=== PATIENT | female | born 1995 | race Two or more races ===

== ENCOUNTER 2016-10-17 17:02 | Observation (INO) | payer MEDICAID ==
[~2016-10-17] VITALS: Ht 160 cm; Wt 54.4 kg
[2016-10-17 17:46] LABS: BASOPHILS % (AUTO) 0.7 % (0.0-2.0); EOSINOPHILS % (AUTO) 0.7 % (0.0-3.0); LYMPHOCYTES % (AUTO) 21.4 % (20.0-45.0); MEAN CORPUSCULAR HEMOGLOBIN 33.2 PG (27.0-31.0); MEAN CORPUSCULAR HGB CONC 36.6 G/DL (32.0-36.0); MEAN CORPUSCULAR VOLUME 91 FL (80-99); MEAN PLATELET VOLUME 5.6 FL (6.5-10.1); MONOCYTES % (AUTO) 8.1 % (1.0-10.0); NEUTROPHILS % (AUTO) 69.1 % (45.0-75.0); PLATELET COUNT 291 K/UL (150-450); RED BLOOD COUNT 3.64 M/UL (4.20-5.40); RED CELL DISTRIBUTION WIDTH 12.9 % (11.6-14.8); WHITE BLOOD COUNT 9.4 K/UL (4.8-10.8)
[2016-10-17 17:53] LABS: APPEARANCE,URINE SLIGHTLY CLOUDY; KETONES,URINE NEGATIVE (NEGATIVE); LEUKOCYTE ESTERASE ,URINE 1+ (NEGATIVE); NITRITE,URINE POSITIVE (NEGATIVE); PH,URINE 6.5 (4.5-8.0); PROTEIN,URINE 1+ (NEGATIVE); UROBILINOGEN,URINE 4 MG/DL (0.0-1.0)
[2016-10-17 18:02] VITALS: BP 92/61
[2016-10-17 18:05] LABS: ALANINE AMINOTRANSFERASE 16 U/L (3-33); ALBUMIN/GLOBULIN RATIO 1.3 (1.0-2.7); ANION GAP 14 (5-15); ASPARTATE AMINO TRANSFERASE 25 U/L (5-40); CALCIUM 9.3 mg/dL (8.6-10.2); CARBON DIOXIDE 25 mEQ/L (20-30); CHLORIDE 97 mEQ/L (98-107); CREATININE 0.7 mg/dL (0.5-0.9); GLOMERULAR FILTRATION RATE > 60 mL/min (>60); HEMOLYSIS 2; LIPASE 19 U/L (< 60); POTASSIUM 3.7 mEQ/L (3.4-4.9); SODIUM 136 mEQ/L (135-145); TOTAL PROTEIN 7.6 g/dL (6.6-8.7)
[2016-10-17 18:34] LABS: RBC,URINE 0-2 /HPF (0 - 2); SQUAMOUS EPITHELIAL CELL,UR FEW /LPF (NONE/OCC)
[2016-10-17 18:35] LABS: BACTERIA,URINE MODERATE /HPF
--- NOTE | 2016-10-17 20:39 | Emergency Room Report ---
History of Present Illness General Chief Complaint: Abdominal Pain Source: Patient (EUGENIO SANTOS) Present Illness HPI The patient is a 21-year-old female presenting for abdominal pain. The patient states that she tested positive for using a home test in August of 2016. She took the morning after pill in late August and experienced vaginal bleeding for approximately 3 weeks She states that bleeding has stopped but is now experiencing pain. Pain described as a 7/10 dull ache to the lower abdomen and does not radiate. Pain worse with touch. She denies other symptoms including nausea, vomiting, fever, chills, vaginal discharge, dysuria, hematuria, flank pain (EUGENIO SANTOS) Allergies: Coded Allergies: No Known Allergies (Unverified , 10/17/16) Patient History Past Medical History: see triage record Pertinent Family History: none Last Menstrual Period: 09/26/16 Now: No Immunizations: UTD Reviewed Nursing Documentation: PMH: Agreed, PSxH: Agreed (EUGENIO SANTOS) Nursing Documentation-PMH Past Medical History: No Stated History (EUGENIO SANTOS) Review of Systems All Other Systems: negative except mentioned in HPI (EUGENIO SANTOS) Physical Exam Vital Signs Date Time Temp Pulse Resp B/P Pulse Ox O2 Delivery O2 Flow Rate FiO2 10/17/16 17:09 99.1 133 26 92/61 98 Room Air Sp02 EP Interpretation: reviewed, normal General Appearance: no apparent distress, alert, GCS 15, non-toxic Head: normocephalic, atraumatic Eyes: bilateral eye PERRL, bilateral eye normal inspection ENT: hearing grossly normal, normal pharynx, no angioedema, normal voice Respiratory: chest non-tender, lungs clear, normal breath sounds, speaking full sentences Cardiovascular #1: no edema, no gallop, no murmur, no rub, tachycardia Gastrointestinal: normal inspection, soft, no mass, no guarding, tenderness - TTP of RLQ, suprapubic, and LLQ Genitourinary: normal inspection, no CVA tenderness Musculoskeletal: back normal, gait/station normal, normal range of motion, non- tender Neurologic: alert, oriented x3, responsive, motor strength/tone normal, sensory intact, normal gait, speech normal Psychiatric: judgement/insight normal, memory normal, mood/affect normal, no suicidal/homicidal ideation Skin: normal color, no rash, warm/dry, well hydrated Lymphatic: no adenopathy (EUGENIO SANTOS) Medical Decision Making PA Attestation Dr. Reynoso is my supervising physician. Patient management was discussed with my supervising physician (EUGENIO SANTOS) Diagnostic Impression: Primary Impression: Ruptured ectopic ER Course The patient is a 21-year-old female presenting for abdominal pain. Differential diagnoses considered include but not limited to gastritis, appendicitis, , UTI, ectopic , ovarian cyst, PID, among others PE: Tachycardia. NAD Lungs are clear to auscultation bilaterally Tachycardia. No MRG Abdomen is soft. Normal bowel sounds. Nondistended. There is tenderness to palpation of the right lower quadrant, suprapubic region, and left lower quadrant No CVA tenderness Ultrasound is limited as patient unable to tolerate transvaginal. Likely ruptured right-sided ectopic is found CBC unremarkable. CMP unremarkable Beta hCG elevated to 4200 The patient is given IV fluids, Zofran, pain medication, and Rocephin The patient's case was discussed between Dr. Reynoso and Dr. Zuniga. The patient will need to go to the OR and is placed on n.p.o. The patient agrees with this plan. She is in stable condition Laboratory Tests Test 10/17/16 17:40 White Blood Count 9.4 K/UL (4.8-10.8) Red Blood Count 3.64 M/UL (4.20-5.40) L Hemoglobin 12.1 G/DL (12.0-16.0) Hematocrit 33.0 % (37.0-47.0) L Mean Corpuscular Volume 91 FL (80-99) Mean Corpuscular Hemoglobin 33.2 PG (27.0-31.0) H Mean Corpuscular Hemoglobin Concent 36.6 G/DL (32.0-36.0) H Red Cell Distribution Width 12.9 % (11.6-14.8) Platelet Count 291 K/UL (150-450) Mean Platelet Volume 5.6 FL (6.5-10.1) L Neutrophils (%) (Auto) 69.1 % (45.0-75.0) Lymphocytes (%) (Auto) 21.4 % (20.0-45.0) Monocytes (%) (Auto) 8.1 % (1.0-10.0) Eosinophils (%) (Auto) 0.7 % (0.0-3.0) Basophils (%) (Auto) 0.7 % (0.0-2.0) Urine Color Yellow Urine Appearance Slightly cloudy Urine pH 6.5 (4.5-8.0) Urine Specific [place] 1.015 (1.005-1.035) Urine Protein 1+ (NEGATIVE) H Urine Glucose (UA) Negative (NEGATIVE) Urine Ketones Negative (NEGATIVE) Urine Occult Blood 3+ (NEGATIVE) H Urine Nitrite Positive (NEGATIVE) H Urine Bilirubin Negative (NEGATIVE) Urine Urobilinogen 4 MG/DL (0.0-1.0) H Urine Leukocyte Esterase 1+ (NEGATIVE) H Urine RBC 0-2 /HPF (0 - 2) Urine WBC 2-4 /HPF (0 - 2) Urine Squamous Epithelial Cells Few /LPF (NONE/OCC) Urine Bacteria Moderate /HPF (NONE) H Urine HCG, Qualitative Positive Sodium Level 136 mEQ/L (135-145) Potassium Level 3.7 mEQ/L (3.4-4.9) Chloride Level 97 mEQ/L (98-107) L Carbon Dioxide Level 25 mEQ/L (20-30) Anion Gap 14 (5-15) Blood Urea Nitrogen 11 mg/dL (7-23) Creatinine 0.7 mg/dL (0.5-0.9) Estimate Glomerular Filtration Rate > 60 mL/min (>60) Glucose Level 100 mg/dL (74-106) Calcium Level 9.3 mg/dL (8.6-10.2) Total Bilirubin 0.4 mg/dL (0.0-1.2) Aspartate Amino Transferase (AST) 25 U/L (5-40) Alanine Aminotransferase (ALT) 16 U/L (3-33) Alkaline Phosphatase 110 U/L (35-104) H Total Protein 7.6 g/dL (6.6-8.7) Albumin 4.4 g/dL (3.5-5.2) Globulin 3.2 g/dL Albumin/Globulin Ratio 1.3 (1.0-2.7) Lipase 19 U/L (< 60) Human Chorionic Gonadotropin, Quant 4291 mIU/mL Lab Results Impression CBC unremarkable. No leukocytosis. No anemia CMP unremarkable Beta-hCG approximately 4,200 Urinalysis consistent with UTI (EUGENIO SANTOS) ER Course Patient initially seen by by [facility]; please see his note for full history and physical Patient documented history of taking morning after pill in August after being . Patient has had pain and vomiting. Patient Urine documents . Beta hCG greater than 4000 Ultrasound is limited secondary to pain however did show complex free fluid consistent with blood. Right adnexal enlargement likely ectopic I discussed case with SERVICE CREW SUPERVISOR Dr Zuniga; he agreed that patient required admission and needs to go to the OR tonight coags and type and screen drawn Antibiotics given Patient will go to the OR tonight and will be admitted under Dr. Zuniga (JANETT REYNOSO M.D.) Chest X-Ray Diagnostic Results EP Interpretation: Yes Findings: no consolidation, no effusion, no pneumothorax, no acute cardiopulmonary disease Number of Views: 1 PA Scribe Text I am acting as scribe for my supervising physician. My supervising physician's interpretation of the chest xrays are there is no consolidation, no effusion, no acute cardiopulmonary disease, no pneumothorax (EUGENIO SANTOS) CT/MRI/US Diagnostic Results CT/MRI/US Diagnostic Results : Imaging Test Ordered: pelvic US Impression R sided ruptured ectopic (EUGENIO SANTOS) Last Vital Signs Date Time Temp Pulse Resp B/P Pulse Ox O2 Delivery O2 Flow Rate FiO2 10/17/16 18:02 99.1 26 92/61 98 Room Air 10/17/16 17:09 133 Status: improved (EUGENIO SANTOS) Status: improved (JANETT REYNOSO M.D.) Disposition: ADMITTED INPATIENT Condition: Serious Referrals: NOT CHOSEN IPA/,REFERRING (PCP) EUGENIO SANTOS Oct 17, 2016 20:39 JANETT REYNOSO M.D. Oct 17, 2016 23:23
[2016-10-17] MEDS ORDERED: Morphine Sulfate 4mg/ml Inj IVP ONE (20:45)
[2016-10-17] MEDS ORDERED: cefTRIAXone 1 GM in NS 55 ML IVPB ONE (22:00)
--- NOTE | 2016-10-17 23:33 | Pre-Procedure Note/Attestation ---
Pre-Procedure Note/Attestation Complete Prior to Procedure Planned Procedure: right Procedure Narrative: - Diagnostic laparoscopy - Possible salpingotomy - Possible salpingectomy Indications for Procedure Pre-Operative Diagnosis: Ectopic , likely on Right side Attestation I attest that I discussed the nature of the procedure; its benefits; risks and complications; and alternatives (and the risks and benefits of such alternatives ), prior to the procedure, with the patient (or the patient's legal office machines sales representative). I attest that, if there was a reasonable possibility of needing a blood transfusion, the patient (or the patient's legal office machines sales representative) was given the [place] Department [employer] Services standardized written summary, pursuant to the Yusuf Corn Blood Safety Act ([place] Health and Safety Code # 1645, as amended). I attest that I re-evaluated the patient just prior to the surgery and that there has been no change in the patient's H&P, except as documented below:NONE GUIDO ROSS Oct 17, 2016 23:33
--- NOTE | 2016-10-17 23:36 | Brief Operative Note ---
Immediate Post Operative Note Operative Note Pre-op Diagnosis: Ectopic , likely on Right side Procedure: DIagnostic Laparoscopy, Right Salpingotomy, Evacuation of extensive hemoperitoneum Post-op Diagnosis: Right Ectopic Post-op Diagnosis: same as pre-op Surgeon: Guido Ross MD Anesthesiologist: Tonny Majano MD Anesthesia: general Specimen: yes Complications: none Condition: stable Fluids: LR @200 cc/hr Estimated Blood Loss: volume - 900 ml of blood in the abdomen Implant(s) used?: No GUIDO ROSS Oct 17, 2016 23:36
[2016-10-17] MEDS ORDERED: Ropivacaine 5mg/ml Vial 20ml INJ ONE (23:44)
[2016-10-18] VITALS (14 sets, daily range): BP systolic 80–112; BP diastolic 40–69
[2016-10-18] MEDS ORDERED: fentaNYL 100 mcg/2 mL IV ONE (00:05)
[2016-10-18] MEDS ORDERED: Dexamethasone 4mg/ml vial ONE (00:05)
[2016-10-18] MEDS ORDERED: NS Irrig 1000ml ONE (00:05)
[2016-10-18] MEDS ORDERED: Midazolam 2mg/2ml Inj ONE (00:05)
[2016-10-18] MEDS ORDERED: Glycopyrrolate 0.2mg/ml 1ml Vial ONE (00:05)
[2016-10-18] MEDS ORDERED: Propofol 10mg/ml 20ml IV ONE (00:05)
[2016-10-18] MEDS ORDERED: Lidocaine 1% MPF 10mg/ml 5ml ONE (00:05)
[2016-10-18] MEDS ORDERED: Ketorolac 60mg Inj ONE (00:05)
[2016-10-18] MEDS ORDERED: LR 1000ml ONE (00:05)
[2016-10-18] MEDS ORDERED: Neostigmine 1mg/ml 10ml Inj ONE (00:05)
[2016-10-18] MEDS ORDERED: Nimbex 2mg/ml Inj 10ML IVP ONE (00:05)
[2016-10-18] MEDS ORDERED: Sterile Water Irrig 1000ml IRRIG ONE (00:05)
[2016-10-18 00:10] LABS: PROTHROMBIN TIME 10.4 SEC (9.30-11.50)
[2016-10-18] MEDS ORDERED: LR 1000ml 1,000 ML IVLG SCH (00:24)
--- NOTE | 2016-10-18 00:29 | Anethesia Preoperative Eval ---
Anesthesia Pre-op PMH/ROS General Date of Evaluation: Oct 18, 2016 Time of Evaluation: 12:01 ASA Score: ASA 1 - Emergency Mallampati Score Class I : Soft palate, uvula, fauces, pillars visible Class II: Soft palate, uvula, fauces visible Class III: Soft palate, base of uvula visible Class IV: Only hard plate visible Mallampati Classification: Class I Surgeon: Nadia Diagnosis: Abd Pain Surgical Procedure: Laparoscopic Evacuation Ectopic Anesthesia History: none Family History: no anesthesia problems Allergies: Coded Allergies: No Known Allergies (Unverified , 10/17/16) Medications: see eMAR Past Medical History Gastrointestinal/Genitourinary: Reports: other - Abnormal Bleeding per Vagina Hematology/Immune: Reports: anemia Anesthesia Pre-op Phys. Exam Physician Exam Last Vital Signs Date Time Temp Pulse Resp B/P Pulse Ox O2 Delivery O2 Flow Rate FiO2 10/18/16 00:01 99.1 19 105/69 98 Room Air 10/17/16 17:09 133 Constitutional: NAD Neurologic: CN 2-12 intact Cardiovascular: RRR Respiratory: CTA Gastrointestinal: S/NT/ND Airway Exam Mallampati Score: Class I MO: full ROM: full Teeth: intact Anesthesia Pre-op A/P Labs Hematology Test 10/17/16 17:40 White Blood Count 9.4 K/UL (4.8-10.8) Red Blood Count 3.64 M/UL (4.20-5.40) L Hemoglobin 12.1 G/DL (12.0-16.0) Hematocrit 33.0 % (37.0-47.0) L Mean Corpuscular Volume 91 FL (80-99) Mean Corpuscular Hemoglobin 33.2 PG (27.0-31.0) H Mean Corpuscular Hemoglobin Concent 36.6 G/DL (32.0-36.0) H Red Cell Distribution Width 12.9 % (11.6-14.8) Platelet Count 291 K/UL (150-450) Mean Platelet Volume 5.6 FL (6.5-10.1) L Neutrophils (%) (Auto) 69.1 % (45.0-75.0) Lymphocytes (%) (Auto) 21.4 % (20.0-45.0) Monocytes (%) (Auto) 8.1 % (1.0-10.0) Eosinophils (%) (Auto) 0.7 % (0.0-3.0) Basophils (%) (Auto) 0.7 % (0.0-2.0) Coagulation Test 10/17/16 22:17 Prothrombin Time 10.4 SEC (9.30-11.50) Prothromb Time International Ratio 1.0 (0.9-1.1) Activated Partial Thromboplast Time 26 SEC (23-33) Chemistry Test 10/17/16 17:40 Sodium Level 136 mEQ/L (135-145) Potassium Level 3.7 mEQ/L (3.4-4.9) Chloride Level 97 mEQ/L (98-107) L Carbon Dioxide Level 25 mEQ/L (20-30) Anion Gap 14 (5-15) Blood Urea Nitrogen 11 mg/dL (7-23) Creatinine 0.7 mg/dL (0.5-0.9) Estimat Glomerular Filtration Rate > 60 mL/min (>60) Glucose Level 100 mg/dL (74-106) Calcium Level 9.3 mg/dL (8.6-10.2) Total Bilirubin 0.4 mg/dL (0.0-1.2) Aspartate Amino Transf (AST/SGOT) 25 U/L (5-40) Alanine Aminotransferase (ALT/SGPT) 16 U/L (3-33) Alkaline Phosphatase 110 U/L (35-104) H Total Protein 7.6 g/dL (6.6-8.7) Albumin 4.4 g/dL (3.5-5.2) Globulin 3.2 g/dL Albumin/Globulin Ratio 1.3 (1.0-2.7) Lipase 19 U/L (< 60) Human Chorionic Gonadotropin, Quant 4291 mIU/mL Urine Test Test 10/17/16 17:40 Urine HCG, Qualitative Positive Risk Assessment & Plan Assessment: ASA 1E Pre-Antibiotics Dru Gram Ancef IV Given Within 1 Hr of Incision: Yes Time Given: 00:11 Aldo Majano MD Oct 18, 2016 00:29
[2016-10-18] MEDS ORDERED: Oxycodone/Acetaminophen 5-325 ORAL PRN (00:30)
[2016-10-18] MEDS ORDERED: Norco 7.5mg/325mg tab ORAL PRN (00:30)
[2016-10-18] MEDS ORDERED: DiphenhydrAMINE 50mg/ml Inj IVP PRN (00:30)
[2016-10-18] MEDS ORDERED: Ketorolac 60mg Inj IV PRN (00:30)
[2016-10-18] MEDS ORDERED: Atropine Inj 1mg/10ml Syr IV PRN (00:30)
[2016-10-18] MEDS ORDERED: Ketorolac 30mg Inj IV PRN (00:30)
[2016-10-18] MEDS ORDERED: Midazolam 2mg/2ml Inj IVP PRN (00:30)
[2016-10-18] MEDS ORDERED: Metoclopramide 10mg/2ml Inj IVP PRN (00:30)
[2016-10-18] MEDS ORDERED: Meperidine 25mg/0.5ml Inj IV PRN (00:30)
[2016-10-18] MEDS ORDERED: fentaNYL 100 mcg/2 mL IV PRN (00:30)
[2016-10-18] MEDS ORDERED: Hydromorphone 0.5mg/0.5ml inj IVP PRN (00:30)
[2016-10-18] MEDS ORDERED: Norco 5mg/325mg tab ORAL PRN ×2 (00:30→02:30)
[2016-10-18] MEDS ORDERED: LORazepam Inj 2mg/ml 1ml IV PRN (00:30)
--- NOTE | 2016-10-18 00:32 | 48 Hour Post Anesthesia Eval ---
Post Anesthesia Evaluation Procedure: Laparoscopic Evacuation Ectopic Pregnacy Date of Evaluation: Oct 18, 2016 Time of Evaluation: 04:31 Blood Pressure Systolic: 101 0: 72 Pulse Rate: 99 Respiratory Rate: 18 Temperature (Fahrenheit): 98.4 O2 Sat by Pulse Oximetry: 100 Airway: patent Nausea: No Vomiting: No Pain Intensity: 2 Hydration Status: adequate Cardiopulmonary Status: Stable Mental Status/LOC: patient returned to baseline Follow-up Care/Observations: 0 Post-Anesthesia Complications: 0 Follow-up care needed: N/A Aldo Majano MD Oct 18, 2016 00:32
--- NOTE | 2016-10-18 00:32 | Immediate Post-Op Evaluation ---
Immediate Post-Op Evalulation Immediate Post-Op Evalulation Procedure: Laparoscopic Evacuation Ectopic Pregnacy Date of Evaluation: Oct 18, 2016 Time of Evaluation: 02:28 IV Fluids: 1600 LR Blood Products: 0 Estimated Blood Loss: 50 Urinary Output: 100 Blood Pressure Systolic: 87 Blood Pressure Diastolic: 50 Pulse Rate: 122 Respiratory Rate: 16 O2 Sat by Pulse Oximetry: 100 Temperature (Fahrenheit): 98 Pain Score (1-10): 2 Nausea: No Vomiting: No Complications 0 Patient Status: awake, reacts, patent, extubated, none Hydration Status: adequate Dru Gram Ancef IV Given Within 1 Hr of Incision: Yes Time Given: 00:11 Aldo Majano MD Oct 18, 2016 00:32
--- NOTE | 2016-10-18 02:28 | Short Stay Surgery H&P ---
History of Present Illness History of Present Illness HPI Myriam Rivera is a 21 year old female who was admitted on for Upper Abdominal Pain Patient History Allergies: Coded Allergies: No Known Allergies (Unverified , 10/17/16) PAST MEDICAL HISTORY: Past Surgeries: Social History: Review of Systems Genitourinary: Reports: BPH, UTI, dialysis, endstage renal disease, no symptoms , other - Low Abominal Pain for 2 days, renal insufficiency, see HPI, urinary retention Physical Exam Vital Signs Last Vital Signs Date Time Temp Pulse Resp B/P Pulse Ox O2 Delivery O2 Flow Rate FiO2 10/18/16 02:19 99 18 100 10/18/16 00:01 99.1 105/69 Room Air Labs Laboratory Tests Test 10/17/16 17:40 10/17/16 22:17 White Blood Count 9.4 K/UL (4.8-10.8) Red Blood Count 3.64 M/UL (4.20-5.40) L Hemoglobin 12.1 G/DL (12.0-16.0) Hematocrit 33.0 % (37.0-47.0) L Mean Corpuscular Volume 91 FL (80-99) Mean Corpuscular Hemoglobin 33.2 PG (27.0-31.0) H Mean Corpuscular Hemoglobin Concent 36.6 G/DL (32.0-36.0) H Red Cell Distribution Width 12.9 % (11.6-14.8) Platelet Count 291 K/UL (150-450) Mean Platelet Volume 5.6 FL (6.5-10.1) L Neutrophils (%) (Auto) 69.1 % (45.0-75.0) Lymphocytes (%) (Auto) 21.4 % (20.0-45.0) Monocytes (%) (Auto) 8.1 % (1.0-10.0) Eosinophils (%) (Auto) 0.7 % (0.0-3.0) Basophils (%) (Auto) 0.7 % (0.0-2.0) Urine Color Yellow Urine Appearance Slightly cloudy Urine pH 6.5 (4.5-8.0) Urine Specific [place] 1.015 (1.005-1.035) Urine Protein 1+ (NEGATIVE) H Urine Glucose (UA) Negative (NEGATIVE) Urine Ketones Negative (NEGATIVE) Urine Occult Blood 3+ (NEGATIVE) H Urine Nitrite Positive (NEGATIVE) H Urine Bilirubin Negative (NEGATIVE) Urine Urobilinogen 4 MG/DL (0.0-1.0) H Urine Leukocyte Esterase 1+ (NEGATIVE) H Urine RBC 0-2 /HPF (0 - 2) Urine WBC 2-4 /HPF (0 - 2) Urine Squamous Epithelial Cells Few /LPF (NONE/OCC) Urine Bacteria Moderate /HPF (NONE) H Urine HCG, Qualitative Positive Sodium Level 136 mEQ/L (135-145) Potassium Level 3.7 mEQ/L (3.4-4.9) Chloride Level 97 mEQ/L (98-107) L Carbon Dioxide Level 25 mEQ/L (20-30) Anion Gap 14 (5-15) Blood Urea Nitrogen 11 mg/dL (7-23) Creatinine 0.7 mg/dL (0.5-0.9) Estimat Glomerular Filtration Rate > 60 mL/min (>60) Glucose Level 100 mg/dL (74-106) Calcium Level 9.3 mg/dL (8.6-10.2) Total Bilirubin 0.4 mg/dL (0.0-1.2) Aspartate Amino Transf (AST/SGOT) 25 U/L (5-40) Alanine Aminotransferase (ALT/SGPT) 16 U/L (3-33) Alkaline Phosphatase 110 U/L (35-104) H Total Protein 7.6 g/dL (6.6-8.7) Albumin 4.4 g/dL (3.5-5.2) Globulin 3.2 g/dL Albumin/Globulin Ratio 1.3 (1.0-2.7) Lipase 19 U/L (< 60) Human Chorionic Gonadotropin, Quant 4291 mIU/mL Prothrombin Time 10.4 SEC (9.30-11.50) Prothromb Time International Ratio 1.0 (0.9-1.1) Activated Partial Thromboplast Time 26 SEC (23-33) XRay U/S = Extensive Fluid in the Pelvis Skin: normal HENT: normal Heart: normal Lungs: normal Abdomen: abnormal - Severe tenderness with Rebound, Right > Left Extremities: normal Genitourinary: normal Plan Plan of Care Video Laparoscopy, emergency Treatment of Ectopic Final Diagnosis: (1) Ectopic , tubal (2) Hemoperitoneum due to rupture of right tubal ectopic Attestation Are the patient's medical conditions optimized for surgery? Attestation Response: yes GUIDO ROSS Oct 18, 2016 02:27
[2016-10-18] MEDS ORDERED: HYDROmorphone 1mg/ml Carpuject SUBQ PRN (02:30)
[2016-10-18] MEDS ORDERED: Tylenol #3 tab (300mg/30mg) ORAL PRN (02:30)
--- NOTE | 2016-10-18 03:00 | Operative Note - Dictated ---
PRE-OPERATIVE DIAGNOSIS: Ruptured ectopic . POSTOPERATIVE DIAGNOSES: Right ruptured ectopic , pelvic adhesions, and extensive hemoperitoneum. PROCEDURE PERFORMED: Video laparoscopy with right tubal salpingotomy, evacuation of ectopic , and evacuation of extensive hemoperitoneum. APPROXIMATE BLOOD LOSS: 900 mL hemoperitoneum. SURGEON: Hector Zuniga M.D. METER SUPERVISOR: None. ANESTHESIA: General endotracheal. ANESTHESIOLOGIST: Aldo Majano M.D. PROCEDURE IN DETAIL: After all the appropriate consents were signed, the patient was brought to the operating room, placed on the table in supine position. General endotracheal anesthesia was induced without complication. The patient was then placed in a dorsal lithotomy position. Perineum, vagina, and abdomen were prepped and draped in the usual fashion for the procedure. The patient was then examined under anesthesia. The cervix was identified, dilated, and uterine manipulator was introduced. Procedure then continued to abdominal portion where umbilical incision was made. Veress needle was placed and the abdomen was insufflated with 15 mmHg. The procedure then continued with placement of a 10 mm trocar in the umbilicus followed by two additional trocars in the lower left and midline. At this time, extensive hemoperitoneum was identified. The uterus was elevated and a right tube contained a very large ectopic . The apex of the was ruptured with blood spilling in the peritoneal cavity. At this time, this ruptured area was further incised using unipolar cautery opening up the dilated portion of the tube. Once the salpingotomy was completed, the traction counter traction was utilized to remove the contents of the . The tubal contents were removed from the field and submitted to pathology for evaluation. Once that was completed, the hemostasis at the tubal salpingotomy was achieved. At this time, extensive irrigation and evacuation of hemoperitoneum was undertaken with significant amount of blood in the upper abdomen as well as in pelvis. Both abdominal gutters were filled with blood. Once the evacuation was completed and the peritoneum was now cleaned with no blood or debris. It was decided to stop the procedure. Once again, complete hemostasis was noted at the tubal salpingotomy. The puncture sites were also evaluated and found to be completely clean. Trocars were removed one after another under direct visualization with the laparoscope. The laparoscope was removed last. The patient's incisions were now closed using a #0 Vicryl suture at the fascia layer and benzoin with Steri-Strips at the skin layer. The patient was placed back in the supine position, awakened from general anesthesia, and brought to the recovery room in excellent condition. Hector Meaghan Zuniga DR: HAYDER JOB#: [id number] CC:
[2016-10-18] MEDS ORDERED: D5 1/2NS 1,000 ML IV SCH (05:00)
--- NOTE | 2016-10-18 11:12 | Diagnostic Imaging Report ---
Indication: Chest Pain Comparison: None A single view chest radiograph was obtained. Findings: Cardiomediastinal appearance is within normal limits for age. Pulmonary vascularity is appropriate. The diaphragmatic contour is smooth and costophrenic angles are sharp. No pleural effusions are identified. The bones are unremarkable. Impression: No acute findings
--- NOTE | 2016-10-19 08:28 | Diagnostic Imaging Report ---
Indication:Lower abdominal and pelvic pain Technique: Grayscale and duplex Doppler imaging of the pelvis performed utilizing a transabdominal scan and endovaginal scan. Endovaginal scan was attempted but unsuccessful as the patient could not tolerate this portion of the study. Comparison: None Findings: Artery stenting as patient has a positive test. On the basis of this study there is no intrauterine seen. There is complex free fluid within the pelvis suggestive of hemoperitoneum. There is fluid in Blanco's pouch. The findings are suspicious for ectopic is the diagnosis until excluded. In addition, is a possible adnexal mass on the right side with surrounding increased vascularity suggestive of inflammation. This could represent the ectopic . The right ovary is not seen. The left ovary is visualized and measures 2.8 x 2.8 x 2.4 cm. The uterus measures 6.4 x 3.7 x 3.0 cm. Endometrium not well violated. Impression: Evidence of hemoperitoneum moderate in volume with fluid in Blanco's pouch. Given the context of positive test and absence of any detectable intrauterine , findings are suspicious for ectopic with rupture. Furthermore there is a possible identification of the ectopic itself in the right adnexa. (Keep in mind that the study is limited because of a lack of endovaginal scan). Please correlate with quantitative beta hCG. [email or web address] has communicated the preliminary results to the Emergency Department. Their findings are largely concordant with this report. Critical value communication. Findings were discussed via telephone with Dr. Lovett @21:27 , 10/17/[address] usama Henning of [facility].
== END 2016-10-18 11:45 | disposition home or self-care (01) ==
LOC: EMR 17:35 → 3E 22:46 → EDBEDREQ 23:25 → UNDOADMOB 10-18 02:39 → 3E 10-18 02:39 → UNDODISOB 10-18 11:45
DX: O00.10 Tubal pregnancy without intrauterine pregnancy (principal); K66.0 Peritoneal adhesions (postprocedural) (postinfection); D64.9 Anemia, unspecified
CPT/HCPCS: 36415; 49322; 59150; 71010; 76856; 80053; 81003; 81025; 83690; 84702; 85025; 85610; 85730; 86850; 86900; 86901; 87086; 87181; 99285; G0378; J0690; J0696; J1100; J1170; J2250; J2270; J2405; J2704; J2710; J2795; J3010; J7120; Z7512; 94003; 94150; J2180

== ENCOUNTER 2016-10-24 00:22 | Emergency (ER) | payer MEDICAID ==
[~2016-10-24] VITALS: Ht 160 cm; Wt 56.7 kg
[2016-10-24 00:45] VITALS: BP 114/62
[2016-10-24] MEDS ORDERED: Hydrogen Peroxide 473ml Bottle TOPIC ONE (00:49)
--- NOTE | 2016-10-24 01:02 | Emergency Room Report ---
History of Present Illness General Chief Complaint: Wound Recheck/Suture Removal Source: Patient Present Illness HPI Is a 21-year-old female who presents with wound check. She had a laparoscopic ectopic removal about a week ago. This was done here by Dr. Zuniga. She was doing well until today she noticed that states that came out and was little it was in the blood. No fever or chills. No nausea no vomiting. Minimal pain. No other complaint. No vomiting. Allergies: Coded Allergies: No Known Allergies (Unverified , 10/17/16) Patient History Past Medical History: see triage record, old chart reviewed Past Surgical History: other Pertinent Family History: none Social History: Denies: smoking Last Menstrual Period: August 2016 Immunizations: other Reviewed Nursing Documentation: PMH: Agreed, PSxH: Agreed Review of Systems Eye: Denies: blurred vision, eye pain ENT: Denies: ear pain, nose congestion, throat swelling Respiratory: Denies: cough, shortness of breath Cardiovascular: Denies: chest pain, palpitations Gastrointestinal: Denies: abdominal pain, diarrhea, nausea, vomiting Musculoskeletal: Denies: back pain, joint pain Skin: Denies: rash Neurological: Denies: headache, numbness Endocrine: Denies: increased thirst, increased urine Hematologic/Lymphatic: Denies: easy bruising All Other Systems: negative except mentioned in HPI Physical Exam Vital Signs Date Time Temp Pulse Resp B/P Pulse Ox O2 Delivery O2 Flow Rate FiO2 10/24/16 00:33 98.2 100 16 114/62 100 Room Air vitals normal Sp02 EP Interpretation: reviewed, normal General Appearance: well appearing, no apparent distress, alert Head: normocephalic, atraumatic Eyes: bilateral eye EOMI, bilateral eye PERRL ENT: hearing grossly normal, normal pharynx Neck: full range of motion, supple, no meningismus Respiratory: chest non-tender, lungs clear, normal breath sounds Cardiovascular #1: regular rate, rhythm, no murmur Gastrointestinal: normal bowel sounds, non tender, no mass, no organomegaly, no bruit, non-distended, other - incision sites w/o e/o infection. umbilicus with dried blood. Musculoskeletal: back normal, gait/station normal, normal range of motion Psychiatric: mood/affect normal Skin: warm/dry Medical Decision Making Diagnostic Impression: Primary Impression: Encounter for re-check of laceration wound ER Course Patient here for wound check. The wound itself looks well and clean. Healing well. No evidence of infection. I removed the Steri-Strip and replaced it with a new one. Last Vital Signs Date Time Temp Pulse Resp B/P Pulse Ox O2 Delivery O2 Flow Rate FiO2 10/24/16 00:45 98.2 100 16 114/62 100 Room Air Status: improved Disposition: HOME, SELF-CARE Condition: Stable Scripts No Active Prescriptions or Reported Meds Patient Instructions: Wound Check Additional Instructions: Followup with [facility] as scheduled. Return if worse. Keep wound clean. JOSEPH WAGNER M.D. Oct 24, 2016 01:02
== END 2016-10-24 01:20 | disposition home or self-care (01) ==
LOC: EMR 01:19
DX: Z48.01 Encounter for change or removal of surgical wound dressing (principal)
CPT/HCPCS: 99281

== ENCOUNTER 2017-04-28 15:37 | Emergency (ER) | payer SELFPAY ==
[~2017-04-28] VITALS: Ht 160 cm; Wt 52.2 kg
[2017-04-28 16:10] VITALS: BP 105/57
[2017-04-28] MEDS ORDERED: Lidocaine 2% Visc 15ml soln ORAL ONE (17:00)
[2017-04-28] MEDS ORDERED: Bicillin LA 1.2 Million Units Syr IM ONE (17:00)
[2017-04-28] MEDS ORDERED: PREDNISONE20 MG ORAL (17:20)
[2017-04-28] MEDS ORDERED: LIDOCAINE VISC100 ML ORAL (17:20)
[2017-04-28 17:42] VITALS: BP 105/57
--- NOTE | 2017-04-28 20:05 | Emergency Room Report ---
History of Present Illness General Chief Complaint: Sore Throat Source: Patient Present Illness HPI Patient's 22 female who presented after increased sore throat. Patient gradual onset of symptoms. She was noted to have some for approximately 2-3 days. She denied any fever. She noted been having some painful swallowing. She denied any neck pain. She denied any severe headache. She denied productive cough Allergies: Coded Allergies: No Known Allergies (Unverified , 10/17/16) Patient History Past Medical History: see triage record Last Menstrual Period: 04/19/17 Now: No : 1 Para: 0 Reviewed Nursing Documentation: PMH: Agreed, PSxH: Agreed Nursing Documentation-PMH Past Medical History: No History, Except For Review of Systems All Other Systems: negative except mentioned in HPI Physical Exam Vital Signs Date Time Temp Pulse Resp B/P (MAP) Pulse Ox O2 Delivery O2 Flow Rate FiO2 04/28/17 16:01 98.4 99 18 105/57 100 Room Air General Appearance: well appearing, no apparent distress, alert, GCS 15 Head: normocephalic, atraumatic ENT: hearing grossly normal, normal voice Neck: full range of motion, supple Respiratory: no respiratory distress, speaking full sentences Cardiovascular #1: normal peripheral pulses, regular rate, rhythm Musculoskeletal: no calf tenderness Neurologic: normal gait Psychiatric: mood/affect normal Skin: no rash Medical Decision Making Diagnostic Impression: Primary Impression: Pharyngitis ER Course patient presented for sore throat.Differential diagnosis included but was not limited to meningitis, exudative tonsillitis, retropharyngeal abscess, epiglottitis, strep pharyngitis.the patient was given oral Decadron she was also given IM penicillin. the patient appears have a bacterial pharyngitis. The patient is advised to follow up with primary care doctor in 1-2 days. Patient is advised to return if any worsening condition or if any changes in status that are concerning. Last Vital Signs Date Time Temp Pulse Resp B/P (MAP) Pulse Ox O2 Delivery O2 Flow Rate FiO2 04/28/17 17:42 98.4 74 18 105/57 100 Room Air Status: improved Disposition: HOME, SELF-CARE Condition: Stable Scripts Prednisone* (PREDNISONE*) 20 Mg Tablet 40 MG ORAL DAILY, #8 TAB Prov: Benoit Horvath 04/28/17 Lidocaine HCl 2% Viscous (Lidocaine HCl 2% Viscous) 100 Ml Solution 15 ML ORAL QID, #120 ML Prov: Benoit Horvath 04/28/17 Referrals: NOT CHOSEN IPA/MD,REFERRING (PCP) Patient Instructions: Pharyngitis, [id number] Benoit Horvath Apr 28, 2017 20:05
== END 2017-04-28 17:50 | disposition home or self-care (01) ==
LOC: EMR 17:45
DX: J02.9 Acute pharyngitis, unspecified (principal)
CPT/HCPCS: 96372; 99284; J0570; J8540; J0561

== ENCOUNTER 2018-09-25 19:01 | Emergency (ER) | payer SELFPAY ==
[~2018-09-25] VITALS: Ht 160 cm; Wt 56.7 kg
[~2018-09-25 19:01] MED LIST: LIDOCAINE VISC100 ML ORAL; PREDNISONE20 MG ORAL
[2018-09-25 19:20] VITALS: BP 122/71
--- NOTE | 2018-09-25 19:23 | NUR ---
ER Nurse Note: Pt came from home c/o mid-epigastic pain since a few days. Pt stated 8/10 burning pain that comes and goes. Pt stated it radiated to the back. The pain worse when she rests and "about 30 mins after she eats." Pt a&ox4, VSS, awaiting urine sample. Will continue to montior.
--- NOTE | 2018-09-25 19:38 | Emergency Room Report ---
History of Present Illness General Chief Complaint: Abdominal Pain Source: Patient Present Illness HPI Patient is a 23-year-old female presented after increased epigastric pain on and off for 1 year. Patient reports having worsening pain over the past few days. She reports having burning sensation constantly to the epigastric area. She had not been having any diarrhea. She denies any black or bloody stools. She reports having some bleeding when she gets constipated but not regularly.Patient denies any fever. She reports having some worsening of pain with position. She denies any recent alcohol use. She denies any prior history of pancreatitis or gallstones. Allergies: Coded Allergies: No Known Allergies (Unverified , 09/25/18) Patient History Last Menstrual Period: currently on period Now: No : 1 Para: 0 Reviewed Nursing Documentation: PMH: Agreed; PSxH: Agreed Nursing Documentation-PMH Past Medical History: No Stated History Physical Exam Vital Signs Date Time Temp Pulse Resp B/P (MAP) Pulse Ox O2 Delivery O2 Flow Rate FiO2 09/25/18 19:13 97.7 80 16 98 Room Air 09/25/18 19:20 122/71 Sp02 EP Interpretation: reviewed, normal General Appearance: normal inspection, well appearing, no apparent distress, alert, GCS 15 Head: atraumatic Eyes: bilateral eye PERRL ENT: normal ENT inspection, hearing grossly normal, normal voice Neck: normal inspection, full range of motion, supple, no bony tend Respiratory: normal inspection, lungs clear, normal breath sounds, no respiratory distress, no retraction, no wheezing Cardiovascular #1: regular rate, rhythm, no edema Gastrointestinal: normal inspection, normal bowel sounds, non tender, soft, no guarding, no hernia Genitourinary: no CVA tenderness Musculoskeletal: normal inspection, back normal, normal range of motion Neurologic: normal inspection, alert, oriented x3, responsive, buffer chrome III-XII nml as tested, speech normal Psychiatric: normal inspection, judgement/insight normal, mood/affect normal Skin: normal inspection, normal color, no rash Medical Decision Making Diagnostic Impression: Primary Impression: Biliary colic Additional Impression: Gastritis ER Course . Patient presented for epigastric burning sensation. Differential diagnosis include was not limited to gastritis, ulcer, myocardial infarction, biliary colic among others. Abdominal ultrasound was ordered due to the patient's location of pain. Patient was noted to have no significant abdominal tenderness. Patient had not been having any bleeding. She appears to be hemodynamically stable.Abdominal ultrasound showed multiple gallstones without evident gallbladder obstruction or sonographic Saleh sign or gallbladder thickening. Patient was advised to follow-up with her primary care physician for outpatient surgery referral. Patient was able to tolerate oral fluids. She is not having any fever. Patient was advised to return if she began having worsening pain persistent vomiting or other concerns. Labs Test 09/25/18 19:45 Urine Color Pale yellow Urine Appearance Clear Urine pH 8 (4.5-8.0) Urine Specific [place] 1.015 (1.005-1.035) Urine Protein Negative (NEGATIVE) Urine Glucose (UA) Negative (NEGATIVE) Urine Ketones 1+ (NEGATIVE) Urine Blood 5+ (NEGATIVE) Urine Nitrite Negative (NEGATIVE) Urine Bilirubin Negative (NEGATIVE) Urine Urobilinogen Normal MG/DL (0.0-1.0) Urine Leukocyte Esterase 1+ (NEGATIVE) Urine RBC 2-4 /HPF (0 - 2) Urine WBC 2-4 /HPF (0 - 2) Urine Squamous Epithelial Cells Few /LPF (NONE/OCC) Urine Bacteria Few /HPF (NONE) Urine HCG, Qualitative Negative (NEGATIVE) Last Vital Signs Date Time Temp Pulse Resp B/P (MAP) Pulse Ox O2 Delivery O2 Flow Rate FiO2 09/25/18 19:20 80 16 Room Air 09/25/18 19:20 97.7 122/71 98 Status: improved Disposition: HOME, SELF-CARE Condition: Stable Scripts Omeprazole Magnesium (PRILOSEC OTC) 20 Mg Tablet.dr 20 MG ORAL DAILY, #30 TAB Prov: Benoit Horvath MD 09/25/18 Dicyclomine Hcl* (DICYCLOMINE HCL*) 10 Mg Capsule 10 MG PO QID, #30 CAP Prov: Benoit Horvath MD 09/25/18 Hydrocodone Bit/Acetaminophen 5-325* (NORCO 5-325*) 1 Each Tablet 1 TAB ORAL Q6H PRN for For Pain, #20 TAB 0 Refills Prov: Benoit Horvath MD 09/25/18 Benoit Horvath MD September 25, 2018 19:38
[2018-09-25] MEDS ORDERED: Dicyclomine HCl 10mg/5ml oral soln ORAL ONE (19:45)
[2018-09-25] MEDS ORDERED: Lidocaine 2% Visc 15ml soln ORAL ONE (19:45)
[2018-09-25 20:07] LABS: APPEARANCE,URINE CLEAR; BILIRUBIN, URINE NEGATIVE (NEGATIVE); COLOR,URINE PALE YELLOW; GLUCOSE, URINE (UA) NEGATIVE (NEGATIVE); KETONES,URINE 1+ (NEGATIVE); LEUKOCYTE ESTERASE ,URINE 1+ (NEGATIVE); NITRITE,URINE NEGATIVE (NEGATIVE); PH,URINE 8 (4.5-8.0); PROTEIN,URINE NEGATIVE (NEGATIVE); UROBILINOGEN,URINE NORMAL MG/DL (0.0-1.0)
[2018-09-25] MEDS ORDERED: Ketorolac 30mg Inj IM ONE (21:15)
[2018-09-25] MEDS ORDERED: HYDROcodone/Acetamin 5/325 tab ORAL ONE (21:15)
[2018-09-25 21:30] VITALS: BP 126/74
--- NOTE | 2018-09-25 21:31 | NUR ---
ER Nurse Note: Pt calm, cooperative, VSS, no signs of distress. Awaiting US of abd, called US and will call again. All orders completed per ERMD orders. Will continue to montior.
[2018-09-25] MEDS ORDERED: DICYCLOMINE HCL10 MG PO (22:24)
[2018-09-25] MEDS ORDERED: NORCO 5-325 TA1 EACH ORAL (22:24)
[2018-09-25] MEDS ORDERED: PRILOSEC OTC20 MG ORAL (22:25)
--- NOTE | 2018-09-25 22:34 | Diagnostic Imaging Report ---
EXAM: US Abdomen Complete CLINICAL HISTORY: PAIN TECHNIQUE: Real-time ultrasound of the abdomen (complete) with image documentation. COMPARISON: No relevant prior studies available. FINDINGS: Liver: Liver measures up to 12.9 cm. No intrahepatic bile duct dilation. Gallbladder: Multiple gallstones. Gallbladder wall measures upper limits normal at 3.3 mm. No pericholecystic fluid. Negative sonographic Saleh's sign. Common bile duct: Common bile duct measures up to 3.1 mm. No stones. No dilation. Pancreas: Unremarkable as visualized. Kidneys: Unremarkable. No stones. No solid mass. No hydronephrosis. Spleen: Unremarkable. No splenomegaly. Aorta: Unremarkable. No aneurysm. IMPRESSION: Gallstones without evidence of acute cholecystitis.
[2018-09-25 22:35] VITALS: BP 126/74
--- NOTE | 2018-09-25 22:35 | NUR ---
ER Nurse Note: All orders completed per ERMD orders. Pt seen, treated, medically cleared for discharge by ERMD. Discharge instructions and prescriptions given with repeat verbazliaion by pt. Instructed pt to follow up with primary care provider within one week. Pt a&ox4, VSS, no signs of distress. ID band removed. Pt left with all belongings with steady gait via own transportation.
== END 2018-09-25 22:36 | disposition home or self-care (01) ==
LOC: EMR 19:46
DX: K80.50 Calculus of bile duct without cholangitis or cholecystitis without obstruction (principal); K29.70 Gastritis, unspecified, without bleeding
CPT/HCPCS: 76700; 81003; 81025; 96372; 99284